=== PATIENT | male | born 1965 | race Caucasian/White ===

== ENCOUNTER 2020-03-16 15:35 | Emergency (ER) | payer BC, SELFPAY ==
[2020-03-16] VITALS (8 sets, daily range): BP systolic 123–147; BP diastolic 72–82; PULSE 62–73; RESP 15–20; TEMP 36.8; O2SAT 95–98; BMI 25.8
--- NOTE | 2020-03-16 16:02 | ECG_ITS ---
APPROVED REPORT Exam: Resting ECG HR:63 bpm ECG Measurements Heart Rate 63 AXES AZ 138 P 60 QRSd 84 QRS 67 QT 390 T 44 QTc 399 Conclusion Normal sinus rhythm ST abnormality, possible electrolyte disturbance Abnormal ECG Electronically signed by : Conor De La Cruz, 03/17/2020 18:32:02
--- NOTE | 2020-03-16 16:02 | XR_ITS ---
PROCEDURE: XR CHEST PORTABLE CLINICAL HISTORY: chest pain COMPARISON: No exams were available for comparison FINDINGS: The cardiomediastinal silhouette and pulmonary vascularity are within normal limits. The lungs are clear without infiltrates, suspicious nodules, or pleural effusions. No acute bony abnormalities. IMPRESSION: No acute findings. Dictated by: Dr. Bob Pérez MD 03/16/2020 19:04 Dr. Bob Pérez MD in 03/16/2020 19:04
[2020-03-16 16:14] LABS: Basophils % 0.4 % (0.1-2.0); Eosinophils # 0.1 K/mm3 (0.0-0.4); Eosinophils % 1.2 % (0.1-12.0); Hematocrit 48.5 % (42.0-52.0); Hemoglobin 17.4 g/dL (14.1-18.0); Lymphocytes # 2.7 K/mm3 (0.7-4.5); Lymphocytes % 30.2 % (10-50); Mean Corpuscular HGB Conc 35.8 g/dL (31.8-35.4); Mean Corpuscular Hemoglobin 32.1 pg (27.0-31.2); Mean Corpuscular Volume 89.7 fl (80-94); Mean Platelet Volume 8.7 fl (7.4-10.4); Monocytes # 0.6 K/mm3 (0.1-1.0); Monocytes % 6.4 % (1.7-9.3); Neutrophils # 5.6 K/mm3 (1.8-7.8); Neutrophils % 61.9 % (37.0-80.0); Platelet Count 200 K/mm3 (142-424); Red Blood Count 5.41 M/mm3 (4.60-6.20); Red Cell Distribution Width 13.6 % (11.5-17.5)
[2020-03-16 16:18] LABS: Chloride 98 mmol/L (98-107); Potassium 3.6 mmoL/L (3.5-5.1); Sodium 137 mmol/L (136-145)
[2020-03-16 16:21] LABS: Anion Gap 11.6 mEq/L (5-15); Blood Urea Nitrogen 14 mg/dl (9-20); Calcium 9.8 mg/dl (8.4-10.2); Carbon Dioxide 31 mmol/L (22.0-30.0); Creatinine Clearance Estimated 119 mL/min (50-200); Estimated Glomerular Filt Rate 101 ml/min (>60); GFR (African American) 122 ML/MIN (>60); Glucose 95 mg/dl (74-100)
--- NOTE | 2020-03-16 16:30 | [facility].EDGENADL ---
ED Disposition Clinical Impression: Pre-syncope Disposition: Home, Self-Care Condition on Discharge: Good Additional Instructions: Please return with any new or worsening symptoms. You most likely had vasovagal presyncope. Follow-up with your primary care physician on Wednesday. Referrals: Thom Campa [Primary Care Provider] - - Critical Care Critical Care Time: No Attestation: On 03/16/20, the high probability of a clinically significant, sudden or life threatening deterioration of the following system(s) required my full and direct attention, intervention and personal management. The time I documented below is in addition to time spent performing reported procedures but includes the following listed in this critical care notation. Medical Decision Making - Medical Records Medical records reviewed: Yes: I reviewed the patient's medical records. - Luis Inquiry Pt receiving controlled substance: No Vital Signs: 03/16/20 15:39 03/16/20 16:30 03/16/20 18:00 Temperature 98.3 F Temperature Source Oral Pulse Rate [Right Radial] 68 65 73 Respiratory Rate 18 20 Blood Pressure [Right Arm] 147/81 H 139/82 128/76 Blood Pressure Mean [Right Arm] 103 101 93 Blood Pressure Source [Right Arm] Automatic Cuff Automatic Cuff Automatic Cuff Blood Pressure Position [Right Arm] Sitting Sitting Sitting 02 Sat by Pulse Oximetry 98 95 96 Oxygen Delivery Method Room Air Room Air Room Air 03/16/20 18:51 Temperature Temperature Source Pulse Rate [Right Radial] 64 Respiratory Rate Blood Pressure [Right Arm] 132/73 Blood Pressure Mean [Right Arm] 92 Blood Pressure Source [Right Arm] Automatic Cuff Blood Pressure Position [Right Arm] Sitting 02 Sat by Pulse Oximetry 95 Oxygen Delivery Method Room Air - Lab Data Lab Results 03/16/20 15:45: WBC 9.0, RBC 5.41, Hgb 17.4, Hct 48.5, MCV 89.7, MCH 32.1 H, MCHC 35.8 H, RDW 13.6, Plt Count 200, MPV 8.7, Neut % (Auto) 61.9, Lymph % (Auto) 30.2, [place] % (Auto) 6.4, Eos % (Auto) 1.2, Baso % (Auto) 0.4, Neut # (Auto) 5.6, Lymph # (Auto) 2.7, [place] # (Auto) 0.6, Eos # (Auto) 0.1, Baso # (Auto) 0.0 03/16/20 15:45: Sodium 137, Potassium 3.6, Chloride 98, Carbon Dioxide 31 H, Anion Gap 11.6, BUN 14, Creatinine 0.80, Estimated Creat Clear 119, Estimated GFR 101, Est GFR ( Amer) 122, Glucose 95, Calcium 9.8, Troponin I < 0.01 03/16/20 15:45: Total Bilirubin 0.5, Direct Bilirubin 0.1, Conjugated Bilirubin 0.0, Indirect Bilirubin 0.4, Unconjugated Bilirubin 0.5, AST 61 H, ALT 78, Alkaline Phosphatase 64, Total Protein 8.4 H, Albumin 4.9 03/16/20 19:30: Troponin I < 0.01 Result diagrams: 03/16/20 15:45 03/16/20 15:45 Orders (Tests/Meds): ORDERS Category Date Time Status Troponin I Q3H Lab 03/16/20 22:15 Ordered Medical Decision Narrative: Patient is a 54-year-old male who presents the emergency department today with elevated blood pressure, tachycardia and chest discomfort. No PE risk factors. Tachycardic at home, however normal heart rate here. No pleuritic chest pain. PERC negative based on heart rate at the emergency department. Low risk for PE. Primarily concern for ACS. Labs and imaging and EKG ordered. No ST elevation IN. Labs nonactionable. Troponins negative x2. On reevaluation patient states this episode was after a bowel movement. Most likely vasovagal presyncope. General Adult HPI - General Chief complaint: Weakness Stated complaint: High BP And Heart rate Time Seen by Provider: 03/16/20 16:00 Mode of Arrival: Ambulatory Limitations: No Limitations Description of Symptoms (Recalled from ER Triage Doc. by RN): Pt reports at approx 1:30 pm today approx 10 minutes after eating lunch he began not feeling well, states he could feel his heart beating in his teeth. Pt reports he checked his bp, states pt was elevated and heart rate was elevated 160s/90s and 112 for heart rate. Pt report he took aspirin 325mg and an extra Lisinopril 10 mg po at the time
[2020-03-16 16:36] LABS: Troponin I < 0.01 ng/ml (0.00-0.034)
[2020-03-16 17:15] LABS: Alanine Aminotransferase 78 U/L (12-78); Alkaline Phosphatase 64 U/L (38-126); Aspartate Amino Transferase 61 U/L (17-59); Bilirubin,Direct 0.1 mg/dl (0.0-0.4); Bilirubin,Indirect 0.4 mg/dL (0.0-0.9); Bilirubin,Total 0.5 mg/dl (0.2-1.3); Bilirubin,Unconjugated 0.5 mg/dL (0.0-1.1)
[2020-03-16 17:16] LABS: Albumin Level 4.9 g/dl (3.5-5.0); Total Protein,Serum 8.4 g/dl (6.3-8.2)
[2020-03-16 20:08] LABS: Troponin I < 0.01 ng/ml (0.00-0.034)
== END 2020-03-16 20:54 | disposition home or self-care (01) ==
PROVIDERS: Emergency Provider Emergency Medicine; PCP Family Medicine
DX: R55 Syncope and collapse (principal); R07.9 Chest pain, unspecified; I10 Essential (primary) hypertension; R53.83 Other fatigue; Z79.899 Other long term (current) drug therapy
CPT/HCPCS: 71045; 80048; 80076; 84484; 85025; 93005; 99283